=== PATIENT | male | born 1980 | race African-American/Black ===

== ENCOUNTER 2020-01-27 08:10 | Emergency (ER) | payer OTHER, SELFPAY ==
[2020-01-27 08:29] VITALS: BP 144/76; PULSE 80; RESP 16; TEMP 36.6; O2SAT 99
--- NOTE | 2020-01-27 08:33 | ED.URI ---
HPI - URI/Sore Throat General Chief Complaint: Upper Respiratory Infection Stated Complaint: CP/Sob Time Seen by Provider: 01/27/20 08:33 Source: patient and RN notes reviewed History of Present Illness HPI Narrative: Patient is a 39-year-old male who presents the urgent care who complains of improving symptoms of wheezing and dyspnea. Patient is not dyspneic at this time and is currently denying any chest pain. Patient states that he cleaned his bathroom at that yesterday and was unable to finish his shift this morning. Patient states that his main concern is a work note due to living work . Patient is a smoker and has continued to smoke with the symptoms. Patient does have a history of asthma and states that he feels like it is messing with his asthma . Patient currently does not have an inhaler. Patient has not done anything for his symptoms. No acute distress at this time. No audible wheezing or any respiratory distress noted. Patient aware of the plan of care. Related Data Allergies Allergy/AdvReac Type Severity Reaction Status Date / Time No Known Allergies Allergy Unknown Unverified 07/14/18 19:38 Review of Systems Review of Systems: Narrative: CONSTITUTIONAL: Denies fever, chills, or sweats. EYES: Denies visual changes, redness, or discharge. ENT: Denies rhinorrhea, congestion, sore throat, or otalgia. CARDIOVASCULAR: Denies chest pain, palpitations, or edema. RESPIRATORY: Denies cough or dyspnea at this time and states he had wheezing yesterday GASTROINTESTINAL: Denies abdominal pain, nausea, vomiting, or diarrhea. GENITOURINARY: Denies dysuria or hematuria. SKIN: Denies rash or itching. MUSCULOSKELETAL: Denies back pain, joint pain, or myalgia. NEUROLOGIC: Denies headache, numbness, or weakness. All other systems reviewed are negative, except as documented in HPI. PMFSH Comments At the time of my signature, I reviewed and agree with the nursing past medical, surgical, social, and family history. There is no relevant family history pertinent to the patient complaint. Exam Narrative: Exam Narrative: GENERAL: This is a well-nourished, well-developed patient, in no apparent distress. HEAD: normocephalic, atraumatic. EYES: PERRL. Sclera clear/white. Vision is grossly intact. EARS: External ears normal NOSE: External nose normal with no obvious nasal discharge, nares without redness, no rhinorrhea. THROAT: Mucous membranes moist, mild erythema noted posterior oropharynx without any notable airway obstruction NECK: Neck supple, non-tender without lymphadenopathy CARDIOVASCULAR: Regular rate and rhythm without murmurs, gallops, or rubs. RESPIRATORY: Clear to auscultation. Breath sounds equal bilaterally. No wheezes, rales, or rhonchi. SKIN: warm, intact with no suspicious lesions or rash, good texture and turgor. NEURO: awake, alert, and oriented to person, place and time. There were no obvious focal neurologic abnormalities. EXTREMITIES: No clubbing, cyanosis, or edema. Course Vital Signs Vital signs: Vital Signs Temperature 97.8 F 01/27/20 08:29 Pulse Rate 80 01/27/20 08:29 Respiratory Rate 16 01/27/20 08:29 Blood Pressure 144/76 H 01/27/20 08:29 Pulse Oximetry 99 01/27/20 08:29 Temperature 97.8 F 01/27/20 08:29 Pulse Rate 80 01/27/20 08:29 Respiratory Rate 16 01/27/20 08:29 Blood Pressure 144/76 H 01/27/20 08:29 Pulse Oximetry 99 01/27/20 08:29 Reviewed?patient is informed that they may have pre-hypertension or hypertension based on a blood pressure reading in the department. I recommend the patient call the primary care provider listed on their discharge instructions or a physician of their choice this week to arrange follow-up for further evaluation of possible pre-hypertension or hypertension. MDM - URI/Sore Throat MDM Narrative Medical decision making narrative: Advised the patient not to mix any bleach with any other products in the house. Try to stop smoking, at least
== END 2020-01-27 08:40 | disposition home or self-care (01) ==
PROVIDERS: Emergency Provider Nurse Practitioner Family
DX: J45.909 Unspecified asthma, uncomplicated (principal); F17.210 Nicotine dependence, cigarettes, uncomplicated
CPT/HCPCS: 99213; G0463

== ENCOUNTER 2020-06-07 13:52 | Emergency (ER) | payer OTHER, SELFPAY ==
--- NOTE | ~2020-06-07 | XR_ITS ---
EXAMINATION: XR wrist LT min 3V DATE: 06/07/2020 14:30 INDICATION: Left wrist injury. TECHNIQUE: 4 views of left wrist were obtained. COMPARISON: None. FINDINGS: Bone alignment is normal. No fracture. Joint spaces are well maintained. IMPRESSION: 1. Normal left wrist. Reviewed, dictated and finalized at location A. IMPRESSION: 1. Normal left wrist.
--- NOTE | 2020-06-07 13:56 | ED.GENADULT ---
HPI - General Adult General Chief complaint: Extremity Injury, Upper Stated complaint: Wrist Pain Time Seen by Provider: 06/07/20 13:55 Source: patient Mode of arrival: ambulatory Limitations: no limitations History of Present Illness HPI narrative: 39-year-old male patient presents to the [facility] with complaints of left wrist pain since last night. Patient states he was at work last night and was taking out the garbage and got his wrist caught in the top of the garbage can. Patient states he did take an extra strength Tylenol last night before bed. Patient denies any numbness or tingling to the hand or fingertips. Related Data Allergies Allergy/AdvReac Type Severity Reaction Status Date / Time No Known Allergies Allergy Unknown Unverified 06/07/20 13:55 Review of Systems Review of Systems: Narrative: CONSTITUTIONAL: Denies fever, chills, or sweats. EYES: Denies visual changes, redness, or discharge. ENT: Denies rhinorrhea, congestion, sore throat, or otalgia. CARDIOVASCULAR: Denies chest pain, palpitations, or edema. RESPIRATORY: Denies cough or dyspnea. GASTROINTESTINAL: Denies abdominal pain, nausea, vomiting, or diarrhea. GENITOURINARY: Denies dysuria or hematuria. SKIN: Denies rash or itching. MUSCULOSKELETAL: Denies back pain, joint pain, or myalgia. Positive left wrist pain NEUROLOGIC: Denies headache, numbness, or weakness. PSYCHIATRIC: Denies anxiety or depression. [facility] Past Medical History Medical History Asthma Chronic back pain [facility] 2019 back pain Comments At the time of my signature I agree with nursing past medical history, surgical, social, and family history. There is no relevant family history pertinent to the presenting complaint. Exam Narrative: Exam Narrative: GENERAL: Well-appearing, well-nourished, and in no acute distress. HEAD: Normocephalic, atraumatic. EYES: PERRLA and EOMI. ENT: Nares clear, no rhinorrhea or epistaxis. Mucous membranes moist. NECK: Supple. No lymphadenopathy CHEST: Clear to auscultation. No respiratory distress. HEART: Regular rate and rhythm. No murmur heard. Normal peripheral pulses. ABDOMEN: Soft, nontender, nondistended, normal active bowel sounds. EXTREMITIES: The L wrist is without obvious asymmetry or deformity when compared to the R wrist. No surface trauma, open wounds, swelling, or obvious deformity. No overlying erythema or warmth. No bony crepitus or focal area of TTP. No scaphoid fullness or tenderness to direct palpation or axial load. Pain with flex/extension, no pain with ulnar/radial deviation. Motor/sensory function of ulnar, radial, median nerves intact. Ulnar and radial pulses intact. SKIN: Warm, dry, no rash. NEURO: No focal deficits. Alert and oriented x3. Course Vital Signs Vital signs: Vital Signs Temperature 36.6 C 06/07/20 14:02 Pulse Rate 89 06/07/20 14:02 Respiratory Rate 16 06/07/20 14:02 Blood Pressure 146/81 H 06/07/20 14:02 Pulse Oximetry 99 06/07/20 14:02 Temperature 36.6 C 06/07/20 14:02 Pulse Rate 89 06/07/20 14:02 Respiratory Rate 16 06/07/20 14:02 Blood Pressure 146/81 H 06/07/20 14:02 Pulse Oximetry 99 06/07/20 14:02 Vital signs reviewed. The patient has been informed that they may have pre-hypertension or Hypertension based on a BP reading in the department. I recommend that the patient call the primary care provider listed on their discharge instructions or a physician of their choice this week to arrange follow up for further evaluation of possible pre-hypertension or Hypertension Medical Decision Making Differential Diagnosis Differential Diagnosis: Differential diagnosis: Fracture, ligament injury, scaphoid fracture, sprains, tendinitis, carpal tunnel syndrome, DeQuervain's tenosynovitis Discussed with patient that his x-ray is negative for any acute fractures. Discussed with patient we will go ahead and wrap the wrist with an Oz wr
[2020-06-07 14:02] VITALS: BP 146/81; PULSE 89; RESP 16; TEMP 36.6; O2SAT 99
== END 2020-06-07 14:43 | disposition home or self-care (01) ==
PROVIDERS: Emergency Provider Nurse Practitioner Family
DX: S63.502A Unspecified sprain of left wrist, initial encounter (principal); X58.XXXA Exposure to other specified factors, initial encounter; Y99.0 Civilian activity done for income or pay; J45.909 Unspecified asthma, uncomplicated
CPT/HCPCS: 73110; 99213; G0463

== ENCOUNTER 2021-08-18 13:53 | Emergency (ER) | payer OTHER, SELFPAY ==
[2021-08-18 13:55] VITALS: BP 125/77; PULSE 110; RESP 20; TEMP 36.6; O2SAT 94
--- NOTE | 2021-08-18 17:43 | PC.NURSE ---
tried to get vitals at 1743 at pt was not on floor
== END 2021-08-19 03:07 | disposition left against medical advice (07) ==
LOC: ANHED 17:48
DX: Z53.21 Procedure and treatment not carried out due to patient leaving prior to being seen by health care provider (principal)
CPT/HCPCS: 99199

== ENCOUNTER 2022-04-06 11:26 | Emergency (ER) | payer OTHER, SELFPAY ==
--- NOTE | ~2022-04-06 | XR_ITS ---
EXAMINATION: XR abdomen/kub 1V DATE: 04/06/2022 13:49 INDICATION: Right flank pain TECHNIQUE: A supine view of the abdomen on 2 radiographs was obtained. COMPARISON: CT dated 04/06/2022 FINDINGS: Moderate amount of stool and small amount of gas scattered throughout the colon. Small amount of gas within a nondilated loop of small bowel in the left abdomen. No dilated loops of bowel to suggest obs truction. No urolithiasis or other suspicious calcifications in the abdomen or pelvis. Lung bases are clear. Heart size is normal. Mild lumbar levocurvature. Bone island at the left femoral head. IMPRESSION: 1. Normal bowel gas pattern. No urolithiasis. Reviewed, dictated and finalized at location A.
--- NOTE | ~2022-04-06 | US_ITS ---
US scrotum doppler INDICATION: Right testicular tenderness TECHNIQUE: Testicular sonogram utilizing grayscale and color Doppler FINDINGS: The testes are normal in size and appearance. No focal lesions are seen. 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 The right testes measures 4.9 x 2.4 x 3.3 cm centimeters, and the left t estis measures 4.9 x 2.1 x 3.1 cm cm. There is normal vascular flow to both testes. The right and left epididymides appear normal. There is no varicocele or hydrocele. IMPRESSION: 1. Testicular microlithiasis, likely of no clinical significance Reviewed, dictated and finalized at location B.
--- NOTE | ~2022-04-06 | CT_ITS ---
EXAMINATION: CT abdomen pelvis wo con DATE: 04/06/2022 13:19 INDICATION: Right flank pain TECHNIQUE: Computed tomography (CT) of the abdomen and pelvis was performed without intravenous contr ast. The dose-length product was 560.49 mGy-cm. Automated exposure control and iterative reconstructi on technique were employed. COMPARISON: No prior studies for comparison. FINDINGS: Lung bases are unremarkable. Heart size normal. No significant pleural or pericardial effus ion. There is splenosis. The liver, pancreas, adrenal glands and kidneys are unremarkable. Gallbladde r is present. Small fat-containing umbilical hernia. Nonobstructive bowel gas pattern. No significant vascular abnormality. No lymphadenopathy. No acute osseous abnormality. IMPRESSION: 1. No acute abdominal abnormality. Reviewed, dictated and finalized at location B.
[2022-04-06 11:44] VITALS: BP 137/92; PULSE 82; RESP 14; TEMP 36.3; O2SAT 100
[2022-04-06 12:32] LABS: Appearance Urine Clear (Clear); Bilirubin Urine Negative (Negative); Blood Urine 1+ (Negative); Color Urine Yellow (Yellow); Glucose Urine UA Negative (Negative); Ketones Urine Negative (Negative); Leukocyte Esterase Ur Negative LEU/UL (Negative); Nitrate Urine Negative (Negative); Protein Urine Negative (Negative); Urobilinogen Urine 0.2 mg/dL (<2.0)
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
[2022-04-06 12:41] LABS: Mucus Urine Rare /lpf; Squamous Epithelial Cell Urine Few /hpf (Few); WBC Urine 0-3 /hpf
[2022-04-06 12:43] LABS: Add Urine Microscopic? YES
--- NOTE | 2022-04-06 13:43 | PC.NURSE ---
pt was a difficult stick. it took several nurses and 5 sticks to get the patients blood.
[2022-04-06 13:47] LABS: Basophils Absolute Auto 0.1 K/mm3 (0.0-0.1); Eosinophils Absolute Auto 0.1 K/mm3 (0-0.3); Eosinophils Percent Auto 2.3 % (0-4.4); Hematocrit 47.6 % (42.0-52.0); Hemoglobin 16.2 g/dL (14.0-18.0); Immature Granulocyte Absolute 0.02 K/mm3 (0.00-0.031); Immature Granulocyte Percent A 0.4 % (0-0.5); Lymphocytes Absolute Auto 1.78 K/mm3 (0.9-3.2); Lymphocytes Percent Auto 34.7 % (18.3-44.2); Mean Corpuscular Hemoglobin 30.9 pg (26-34); Mean Corpuscular Volume 90.8 fl (80-100); Mean Platelet Volume 10.9 fl (7.4-10.4); Monocytes Absolute Auto 0.6 K/mm3 (0.1-0.6); Monocytes Percent Auto 10.9 % (2.6-8.5); Neutrophils Absolute Auto 2.6 K/mm3 (1.3-6.7); Neutrophils Percent Auto 50.7 % (45.5-73.1); Platelet Count Result 206 k/mm3 (150-375); Red Blood Count 5.24 M/mm3 (4.6-6.20); White Blood Count 5.1 K/mm3 (4.5-10.0)
[2022-04-06 14:02] LABS: Alanine Aminotransferase 21 U/L (6-50); Albumin Level 4.5 g/dL (3.5-5.1); Alkaline Phosphatase 48 U/L (38-126); Anion Gap 9 mmol/L (8-16); Aspartate Amino Transferase 27 U/L (17-59); Bilirubin,Total 0.6 mg/dL (0.2-1.3); Blood Urea Nitrogen 12 mg/dL (9-20); Calcium 9.2 mg/dL (8.4-10.2); Carbon Dioxide 26 mmol/L (22-30); Chloride 102 mmol/L (98-107); Estimated CRCL calculation 86 ml/min; Estimated Glomerular Filt Rate > 60; Glucose 93 mg/dL (65-110); Lipase 769 U/L (23-300); Potassium 4.5 mmol/L (3.4-5.0); Sodium 137 mmol/L (137-145)
[2022-04-06] MEDS: SODIUM CHLORIDE 0.9% IV 1,000 ML 999 ML IV CONT (14:09)
[2022-04-06] MEDS: ONDANSETRON INJ 4 MG/2 ML VIAL IV PUSH (14:10)
[2022-04-06] MEDS: cefTRIAXone 1 GM VIAL 0.5 GM IM (14:48)
[2022-04-06 14:55] VITALS: BP 103/68; PULSE 68; RESP 18; O2SAT 100
== END 2022-04-06 14:56 | disposition home or self-care (01) ==
PROVIDERS: Emergency Medicine; Emergency Provider General Practice
DX: N34.2 Other urethritis (principal); J45.909 Unspecified asthma, uncomplicated; G89.21 Chronic pain due to trauma; M54.9 Dorsalgia, unspecified; F17.210 Nicotine dependence, cigarettes, uncomplicated
CPT/HCPCS: 36415; 74018; 74176; 76870; 80053; 81001; 83690; 85025; 87491; 87591; 93976; 96365; 96372; 96375; 99284; J0131; J0696; J2405; J7030

== ENCOUNTER 2022-04-28 22:24 | Emergency (ER) | payer OTHER, SELFPAY ==
--- NOTE | ~2022-04-28 | XR_ITS ---
EXAM: XR elbow RT min 3V DATE: 04/28/2022 22:48 HISTORY: hit elbow on table;gen pain Rt elbow,numbness going down arm . COMPARISON: None available. FINDINGS: Normal mineralization. No fracture or dislocation. No lytic or blastic lesion. Mild degene rative changes in the elbow joint. No erosion or periosteal change. Soft tissues within normal limits . IMPRESSION: No acute osseous finding the right elbow. Reviewed, dictated and finalized at location K.
[2022-04-28 22:35] VITALS: BP 130/73; PULSE 99; RESP 16; TEMP 36.6; O2SAT 98
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
[2022-04-28] MEDS: KETOROLAC 30 MG/ML VIAL (*BKC) IM (23:29)
[2022-04-28 23:32] VITALS: BP 129/84; PULSE 95; RESP 18; O2SAT 96
== END 2022-04-28 23:37 | disposition home or self-care (01) ==
PROVIDERS: Emergency Provider Preventive Medicine Aerospace Medicine
DX: S59.901A Unspecified injury of right elbow, initial encounter (principal); J45.909 Unspecified asthma, uncomplicated; F17.210 Nicotine dependence, cigarettes, uncomplicated; W22.03XA Walked into furniture, initial encounter
CPT/HCPCS: 73080; 96372; 99283; J1885

== ENCOUNTER 2024-07-29 09:32 | Emergency (ER) | payer OTHER, SELFPAY ==
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
[2024-07-29 09:46] VITALS: BP 133/76; PULSE 77; RESP 20; TEMP 36.4; O2SAT 99
== END 2024-07-29 10:00 | disposition home or self-care (01) ==
PROVIDERS: Emergency Provider Nurse Practitioner
DX: H10.32 Unspecified acute conjunctivitis, left eye (principal); F17.210 Nicotine dependence, cigarettes, uncomplicated; J45.909 Unspecified asthma, uncomplicated
CPT/HCPCS: 99213; G0463

== ENCOUNTER 2025-06-12 17:36 | Emergency (ER) | payer OTHER, SELFPAY ==
[2025-06-12 17:48] VITALS: BP 147/77; PULSE 99; RESP 20; TEMP 36.6; O2SAT 97
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
== END 2025-06-12 18:14 | disposition short-term general hospital (02) ==
DX: M54.2 Cervicalgia (principal); R07.89 Other chest pain; R51.9 Headache, unspecified; M54.6 Pain in thoracic spine; M54.50 Low back pain, unspecified; V49.50XA Passenger injured in collision with unspecified motor vehicles in traffic accident, initial encounter; J45.909 Unspecified asthma, uncomplicated; F17.210 Nicotine dependence, cigarettes, uncomplicated
CPT/HCPCS: 99215; G0463; L0140

== ENCOUNTER 2025-06-12 18:36 | Emergency (ER) | payer OTHER, SELFPAY ==
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
[2025-06-12 18:40] VITALS: BP 147/81; PULSE 95; RESP 16; TEMP 36.6; O2SAT 98
[2025-06-12 18:55] VITALS: PULSE 91; RESP 17; TEMP 36.4; O2SAT 97
[2025-06-12] MEDS: MORPHINE SULFATE (*CRX) 4 MG/ML INJ IV PUSH (19:47)
[2025-06-12 20:13] LABS: Hematocrit 48.1 % (42.0-52.0); Hemoglobin 16.4 g/dL (14.0-18.0); Immature Granulocyte Percent A 0.3 % (0-0.5); Lymphocytes Absolute Auto 2.46 K/mm3 (0.9-3.2); Mean Corpuscular HGB Conc 34.1 g/dl (32-36); Mean Corpuscular Hemoglobin 30.5 pg (26-34); Mean Corpuscular Volume 89.4 fl (80-100); Nucleated Red Blood Cells Absolute Auto 0.000 K/mm3 (0.0-0.012); Nucleated Red Blood Cells Perc 0.0 % (0.0-0.2); Platelet Count Result 256 k/mm3 (150-375); Red Blood Count 5.38 M/mm3 (4.6-6.20); White Blood Count 6.8 K/mm3 (4.5-10.0)
[2025-06-12 20:14] LABS: Alanine Aminotransferase 35 U/L (6-50); Albumin Level 4.7 g/dL (3.5-5.1); Alkaline Phosphatase 64 U/L (38-126); Anion Gap 9 mmol/L (4-12); Aspartate Amino Transferase 38 U/L (17-59); Bilirubin,Total 0.6 mg/dL (0.2-1.3); Blood Urea Nitrogen 9 mg/dL (9-20); Calcium 9.1 mg/dL (8.4-10.2); Carbon Dioxide 26 mmol/L (22-30); Chloride 102 mmol/L (98-107); Estimated CRCL calculation 69 ml/min; Estimated Glomerular Filt Rate 58; Glucose 88 mg/dL (65-110); Lipase 110 U/L (23-300); Potassium 4.1 mmol/L (3.4-5.0); Sodium 137 mmol/L (137-145); Total Protein 7.8 g/dL (6.3-8.2)
--- OUTSIDE RECORDS SUMMARY | 2025-06-12 20:29 | XMS_ITS | Clinical Summary ---
Author Organization 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 Gender Identity Not on file Sexual Orientation Not on file Plan of Treatment Health Maintenance Due Date Last Done Comments Hepatitis C Virus (HCV) Screening 1980 TdaP Immunization 1980 Hepatitis B Immunization (1 of 3 - 19+ 3-dose series) 1999 Human Papillomavirus (HPV) Immunization (1 - 3-dose SCDM series) 2007 Influenza Immunization (#1) 2025 SARS-COV-2 Immunization ( - season) 2025 Respiratory Syncytial Virus (RSV) Immunization (Adult) (1 - 1-dose 75+ series) 2055 DTaP/Tdap/Td Immunization Discontinued 1981, 01/09/1981, 1980, Additional history exists Meningococcal Immunization (ACWY) Aged Out No longer eligible based on patient's age to complete this topic Pneumococcal Immunization Combined Aged Out No longer eligible based on patient's age to complete this topic Rotavirus Immunization Aged Out No lo nger eligible based on patient's age to complete this topic Insurance [employer] on file
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
== END 2025-06-12 21:53 | disposition home or self-care (01) ==
PROVIDERS: Emergency Provider Emergency Medicine
DX: S93.401A Sprain of unspecified ligament of right ankle, initial encounter (principal); S16.1XXA Strain of muscle, fascia and tendon at neck level, initial encounter; J45.909 Unspecified asthma, uncomplicated; F17.210 Nicotine dependence, cigarettes, uncomplicated; V53.6XXA Passenger in pick-up truck or van injured in collision with car, pick-up truck or van in traffic accident, initial encounter
CPT/HCPCS: 36415; 70450; 71260; 72125; 73610; 74177; 80053; 83690; 85025; 96374; 99284; J2270; Q9967